=== PATIENT | female | born 1980 | race Caucasian/White ===

== ENCOUNTER 2017-02-10 17:50 | Emergency (ER) | payer OTHER ==
[2017-02-10 17:59] VITALS: BP 123/63; PULSE 75; TEMP 98.3; BMI 24.0
[2017-02-10] MEDS ORDERED: FOLIC ACID INJECTION - 1 MG, THIAMINE HCL 100 MG, MULTIVIT INJECTION ADULT 10 ML in SOD... IVPB ONE (19:27)
--- NOTE | 2017-02-10 19:27 | PDOC ---
History of Present Illness - General Chief Complaint: Pain, Acute Stated Complaint: VOMITING/DIARRHEA Time Seen by Provider: 02/10/17 19:11 - History of Present Illness Initial Comments: 02/10/17 19:27 CHIEF COMPLAINT: vomiting/diarrhea HISTORY OF PRESENT ILLNESS: 36 yo 17 wk F with hx of optic neuritis presents to ED with vomiting/diarrhea x 4 days. Patient states 3 nights ago she had one episode of "projectile vomiting." The next two days she did not have any vomiting but then after eating last night she had another episode of vomiting today. She has had "continuous watery diarrhea" over the past four days, and reports feeling very lethargic. She denies any vaginal bleeding, cramping, but does report right upper quadrant abdominal pain. She states she ate salad for lunch on Thursday and pizza for dinner prior to the onset of vomiting/diarrhea. She is tolerating liquids but "then it comes right out in diarrhea." She denies any recent travel or sick contacts. PAST MEDICAL HISTORY: as per HPI FAMILY HISTORY: Denies SOCIAL HISTORY:Denies tobacco, alcohol, illicit drug use. SURGICAL HISTORY: Denies ALLERGIES: No known drug allergies REVIEW OF SYSTEMS General/Constitutional: Denies fever or chills. Denies weakness, weight change. HEENT: Denies change in vision. Denies ear pain or discharge. Denies sore throat. Cardiovascular: Denies chest pain or shortness of breath. Respiratory: Denies cough, wheezing, or hemoptysis. Gastrointestinal: Vomiting and diarrhea x 4days. RUQ discomfort "feels like I have gas pain." Denies rectal bleeding. Genitourinary: Denies dysuria, frequency, or change in urination. Musculoskeletal: Denies joint or muscle swelling or pain. Denies neck or back pain. Skin and breasts: Denies rash or easy bruising. PHYSICAL EXAM General Appearance: Well-appearing, appropriately dressed. No apparent distress. HEENT: EOMI, PERRLA, normal ENT inspection, normal voice, TMs normal, pharynx normal. No conjunctival pallor. No photophobia, scleral icterus. Neck: Supple. Trachea midline. No tenderness, rigidity, carotid bruit, stridor , lymphadenopathy, or thyromegaly. Respiratory/Chest: Lungs CTAB. Cardiovascular: RRR. S1, S2. Gastrointestinal/Abdominal: Normal bowel sounds. Abdomen soft, non-distended. No tenderness or rebound tenderness. No organomegaly, pulsatile mass, guarding , hernia, hepatomegaly, splenomegaly. Lymphatic: No adenopathy, tenderness. Musculoskeletal/Extremities: Normal inspection. FROM of all extremities, normal capillary refill. Pelvis Stable. No CVA tenderness. No tenderness to extremities, pedal edema, swelling, erythema or deformity. Integumentary: Appropriate color, dry, warm. No cyanosis, erythema, jaundice or rash Neurologic: mental health therapist II-XII intact. Fully oriented, alert. Appropriate mood/affect. Motor strength 5/5. No appreciable EOM palsy, facial droop or sensory deficit. 02/10/17 19:31 Past History - Past Medical History Allergies/Adverse Reactions: Allergies Allergy/AdvReac Type Severity Reaction Status Date / Time No Known Allergies Allergy Verified 02/10/17 17:55 Home Medications: Ambulatory Orders Doxylamine/Pyridoxine HCl [Laura Hutchison 10-10 mg Tablet] 1 each PO HS #30 tablet. 02/10/17 Simethicone [Gas-X] 125 mg PO TID PRN #21 capsule 02/10/17 Asthma: No Cancer: No Cardiac Disorders: No Diabetes: No HTN: No Seizures: No Thyroid Disease: No Other medical history: OPTIC NEURITIS - Psycho/Social/Smoking Cessation Hx Suicidal Ideation: No Smoking History: Current every day smoker Number of Cigarettes Smoked Daily: 20 Information on smoking cessation initiated: No Hx Alcohol Use: No Drug/Substance Use Hx: No Hx Substance Use Treatment: No *Physical Exam - Vital Signs Last Vital Signs Temp Pulse Resp BP Pulse Ox 98.3 F 75 18 123/63 99 02/10/17 17:51 02/10/17 17:51 02/10/17 17:51 02/10/17 17:51 02/10/17 17:51 ED Treatment Course - LABORATORY CBC & Chemistry Diagram: 02/10/17 19:13 02/10/17 19:13 Medical Decision Making - Medical Decision Making 02/10/17 21:37 36 yo 17 wk F with hx of optic neuritis presents to ED with vomiting/diarrhea x 4 days. -CBC, CMP -IVF -Banana bag -TV U/S Labs: K+ 3.0, Calcium 7.9, otherwise unremarkable -Vit D3, Calcium Carbonate -NS + 20K Ultrasound results: FHR 156, live intrauterine gestation measured at 16 weeks and 1 day with sufficient amniotic fluid. Patient reassessed; states she still feels "like I have gas." -Simethicone 80 mg po -Deisylegis RX sent to pharm Advised patient to take medication as prescribed and follow up with OB within 48 hours for further management of . Advised patient of signs and symptoms for return to ER; patient verbalized understanding and agrees to plan. 02/10/17 23:35 *DC/Admit/Observation/Transfer Diagnosis at time of Disposition: Acute gastroenteritis - Discharge Dispostion Disposition: HOME Condition at time of disposition: Stable Admit: No - Prescriptions Prescriptions: Doxylamine/Pyridoxine HCl [Laura Hutchison 10-10 mg Tablet] 1 each PO HS #30 tablet. Simethicone [Gas-X] 125 mg PO TID PRN #21 capsule PRN Reason: Gas - Referrals Referrals: Tanner Mancilla [Primary Care Provider] - - Patient Instructions Printed Discharge Instructions: DI for Viral Gastroenteritis -- Adult Additional Instructions: Please drink plenty of fluids to prevent dehydration and follow up with your administrative program specialist within the next 48 hours for further management of your . Take medication as prescribed. If you experience any fever, vaginal bleeding , abdominal cramping, headache, or any new or worsening symptoms, please return to the ER. - Post Discharge Activity Work/School Note: Back to Work
[2017-02-10] MEDS ORDERED: CHOLECALCIFEROL (VITAMIN D3) 400 UNIT TABLET (FP) PO ONE (21:28)
[2017-02-10] MEDS ORDERED: SODIUM CHLORIDE 0.9%/KCL 1,000 ML IV SCH (21:30)
[2017-02-10] MEDS ORDERED: SODIUM CHLORIDE 1,000 ML with POTASSIUM CHLORIDE 20 MEQ IVPB SCH (21:45)
[2017-02-10] MEDS ORDERED: SIMETHICONE 40 MG/0.6 ML BOTTLE PO ONE (23:33)
[2017-02-10] MEDS ORDERED: MAG HYDROX/AL HYDROX/SIMETH 30 ML UNIT-DOSE CUP ONE (23:54)
[2017-02-11] MEDS ORDERED: CALCIUM CARBONATE 650 MG TABLET PO ONE (21:28)
== END 2017-02-11 00:09 | disposition home or self-care (01) ==
LOC: JER 17:50
PROC: 3E033GC Introduction of Other Therapeutic Substance into Peripheral Vein, Percutaneous Approach (ICD-10-PCS; principal; 2017-02-10)
DX: O26.892 Other specified pregnancy related conditions, second trimester (principal); H46.9 Unspecified optic neuritis; F17.210 Nicotine dependence, cigarettes, uncomplicated; Z3A.17 17 weeks gestation of pregnancy
CPT/HCPCS: 36415; 76815-TC; 80053; 81003; 81015; 83690; 84702; 85025; 96365; 99283-25

== ENCOUNTER 2017-03-09 13:21 | Inpatient (IN) | payer OTHER ==
--- NOTE | 2017-03-09 14:14 | PDOC ---
History of Present Illness - General Chief Complaint: Pain Stated Complaint: ABD PAIN, BLEEDING (19 WKS ) Exam Limitations: No Limitations - History of Present Illness Initial Comments: 03/09/17 14:08 36 yo F at 19 weeks, 3 prior csections with known lucency, over prior scar , here today wtih sudden loss of fluid. now having intermittent labor like cramps q 3 minuts. no bleeding. no abd pain between cramps. no trauma. no n/v 03/09/17 14:14 Timing/Duration: reports: getting worse Quality: reports: moderate Abdominal Pain Onset Location: reports: periumbilical Pain Radiation: reports: no radiation Activities at Onset: reports: none Treatment Prior to Arrive: worse with: analgesics, antacids, heat Aggravating Factors: improves with: None Past History - Past Medical History Allergies/Adverse Reactions: Allergies Allergy/AdvReac Type Severity Reaction Status Date / Time No Known Allergies Allergy Verified 03/09/17 13:27 Home Medications: Ambulatory Orders NK [No Known Home Medication] 03/09/17 Asthma: No Cancer: No Cardiac Disorders: No Diabetes: No HTN: No Seizures: No Thyroid Disease: No - Reproductive History Is Patient Now?: Yes (#): 3 Para: 2 - Psycho/Social/Smoking Cessation Hx Suicidal Ideation: No Smoking History: Never smoked Number of Cigarettes Smoked Daily: 20 Information on smoking cessation initiated: No Hx Alcohol Use: No Drug/Substance Use Hx: No Substance Use Type: None Hx Substance Use Treatment: No Abd/GI Specific PMHX - Complaint Specific PMHX Comments:: 03/09/17 14:14 c section Review of Systems - Review of Systems HEENTM: No: See HPI, Eye Pain, Blurred Vision Respiratory: No: Cough, Orthopnea ABD/GI: Yes: Abdominal Distended, Other (cramps). No: Abd. Pain w/ defecation, Blood Streaked Bowels : Yes: Other (loss of fluid) Musculoskeletal: No: Back Pain Integumentary: No: See HPI All Other Systems: Reviewed and Negative *Physical Exam - Vital Signs Last Vital Signs Temp Pulse Resp BP Pulse Ox 97.9 F 80 19 149/69 100 03/09/17 13:25 03/09/17 13:25 03/09/17 13:25 03/09/17 13:25 03/09/17 13:25 - Physical Exam General Appearance: Yes: Nourished. No: Apparent Distress HEENT: positive: EOMI, PAUL Neck: negative: Tender, Trachea midline Respiratory/Chest: positive: Chest Tender, Lungs Clear Cardiovascular: positive: Regular Rhythm, Regular Rate Vascular Pulses: Dorsalis-Pedis (R): 2+, Doralis-Pedis (L): 2+ Female Pelvic Exam: positive: other (pelvic exam deferred due to concerns for ruptured membranes will send upstairs for evaluation.) Gastrointestinal/Abdominal: positive: Other (gravid) Musculoskeletal: positive: Normal Inspection Extremity: positive: Normal Capillary Refill, Normal Inspection Integumentary: positive: Normal Color, Dry, Warm Neurologic: positive: Alert, Normal Mood/Affect, Normal Response. 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 diferential: PROM, labor, plan iv hydration bedside transabdominal US for well being. ua pain control as needed. will d/w dr. ross. 03/09/17 14:24 d/w dr. Soriano covering for Dr. Ross, will transfer pt to L&D 03/09/17 14:54 d/w labor and delivery, and Dr. Soriano, pt to go to labor and delivery for labor. *DC/Admit/Observation/Transfer Diagnosis at time of Disposition: labor in second trimester - Discharge Dispostion Disposition: HOME Admit: No - Referrals Referrals: STAFF,NOT ON [Primary Care Provider] - - Patient Instructions Printed Discharge Instructions: Labor
[2017-03-09] MEDS ORDERED: SODIUM CHLORIDE 1,000 ML IV STA (14:17)
[2017-03-09 14:43] LABS: URINE APPEARANCE CLOUDY; URINE BILIRUBIN NEGATIVE (NEGATIVE); URINE COLOR YELLOW; URINE GLUCOSE (UA) NEGATIVE (NEGATIVE); URINE KETONE TRACE (NEGATIVE); URINE NITRITE NEGATIVE (NEGATIVE); URINE UROBILINOGEN NEGATIVE E.U./dl (0.2-1.0)
[2017-03-09 14:47] LABS: BASOPHIL 0.2 % (0-2.0); EOSINOPHIL 0.2 % (0-4.5); MCH 29.5 pg (25.7-33.7); MEAN CELL VOLUME 89.4 fl (80-96); MEAN PLT VOLUME 9.9 fl (7.5-11.1); NEUTROPHILS 82.1 % (42.8-82.8); PLATELET COUNT 153 K/MM3 (134-434); RDW 15.5 % (11.6-15.6); WHITE BLOOD COUNT 13.9 K/mm3 (4.0-10.0)
[2017-03-09 14:50] LABS: URINE BLOOD 2+ (NEGATIVE); URINE LEUK ESTERASE 3+ (NEGATIVE); URINE PROTEIN 1+ (NEGATIVE)
[2017-03-09] MEDS: D5W-LR W/ 20 UNITS OXYTOCIN 1,000 ML IV SCH ×2 (15:10→19:40)
[2017-03-09 15:26] LABS: ALBUMIN 3.1 g/dl (3.4-5.0); ALK PHOS 52 U/L (45-117); ANION GAP 10 (8-16); BILIRUBIN,TOTAL 0.2 mg/dL (0.2-1.0); CALCIUM 8.4 mg/dL (8.5-10.1); CO2 23 mmol/L (21-32); COCKROFT - GAULT 257.3205; CREATININE 0.3 mg/dL (0.55-1.02); GLUCOSE,RANDOM 74 mg/dL (74-106); SGOT/AST 15 U/L (15-37); SGPT/ALT 16 U/L (12-78); TOT PROT 6.5 g/dl (6.4-8.2)
[2017-03-09 15:39] LABS: URINE BACTERIA RARE /hpf (NONE SEEN); URINE RBC 9 /hpf (0-3); URINE WBC 983 /hpf (3-5)
[2017-03-09 16:07] VITALS: BMI 21.9
--- NOTE | 2017-03-09 16:13 | HP ---
Past Medical History - Primary Care Physician PCP:: Keyshawn Isbell - Admission Chief Complaint: 36 yo @ 19 weeks with sever pelvic pain, possible leackage of fluid, she had been evaluated in ER and found not to have fluid or air in her abdomen, and was sent to L&D, ? FM History of Present Illness: 1. c/section x 3, last c/s had uterine window 2. ETOP x 11 3. h/o substance use - tobacco and marijuana, denies currently History Source: Patient Limitations to Obtaining History: No Limitations - Past Medical History ...: 15 ...Para: 3 ...Term: 3 ...: 0 ...Spon : 0 ...Induced : 11 ...LMP: 10/26/16 ... Weeks Gestation by Dates: 19.1 ...EDC by Dates: 08/02/17 Additional Medical History: 1. R optic neuritis. 2. h/o anal fissure - Past Surgical History Past Surgical History: Yes: (three) Hx Myomectomy: No Hx Transabdominal Cerclage: No - Smoking History Smoking history: Former smoker Have you smoked in the past 12 months: No Aproximately how many cigarettes per day: 20 - Alcohol/Substance Use Hx Alcohol Use: No Home Medications - Allergies Allergies/Adverse Reactions: Allergies Allergy/AdvReac Type Severity Reaction Status Date / Time No Known Allergies Allergy Verified 03/09/17 13:27 - Home Medications Home Medications: Ambulatory Orders NK [No Known Home Medication] 03/09/17 Physical Exam - Maternity Vital Signs: Vital Signs Temperature 98.3 F 03/09/17 15:15 Pulse Rate 101 H 03/09/17 15:15 Respiratory Rate 20 03/09/17 15:15 Blood Pressure 110/70 03/09/17 15:15 O2 Sat by Pulse Oximetry (%) 100 03/09/17 13:25 Constitutional: Yes: Well Nourished Cardiovascular: Yes: WNL Breast(s): Yes: WNL - Abdominal Exam/OB Fundal Height: 20 Number of Fetuses: Single Presentation: Vertex Contractions: Yes Intensity: Moderate - Vaginal Exam/OB Vaginal Bleediing: Yes Amniotic Membrane Status: Ruptured Nitrazine Test: Positive Amniotic Fluid: Yes: Blood Stained - Physical Exam Musculoskeletal: Yes: WNL Extremities: Yes: WNL Integumentary: Yes: WNL Psychiatric: Yes: WNL (Spontaneously delivered nonviable infant and placenta, ~ 500cc of blood clots, Uterus examined and found to be intact and contracted after delivery) Assessment/Plan 36 yo P3 s/p delivery of Inevitable Ab, intact fetus and placenta vaginal bleeding controlled Pitocin with IVF Patient Blood type is Rh positive, no need for Rhogam No evidence of infection will observe overnight and activities counselor on Contraception in am
[2017-03-09] MEDS ORDERED: ACETAMINOPHEN 325 MG TABLET (FP) PO PRN (16:14)
[2017-03-09] MEDS ORDERED: BENZOCAINE 20% 57 GM BOTTLE TP PRN (16:14)
[2017-03-09] MEDS ORDERED: METHYLERGONOVINE MALEATE 0.2 MG/1 ML AMP IM PRN (16:14)
[2017-03-09] MEDS ORDERED: BISACODYL 10 MG SUPP.RECT RC PRN (16:14)
[2017-03-09] MEDS ORDERED: BENZOCAINE 28 GM HEMORRHOIDAL OINTMENT TP PRN (16:14)
[2017-03-09] MEDS ORDERED: WITCH HAZEL 50% (TUCKS) 40 PAD/JAR PAD TP PRN (16:14)
[2017-03-09] MEDS ORDERED: IBUPROFEN 600 MG TABLET (FP) PO PRN (16:14)
[2017-03-10] MEDS: D5W-LR W/ 20 UNITS OXYTOCIN 1,000 ML IV SCH (02:57)
[2017-03-10 07:24] LABS: BASOPHIL 0.1 % (0-2.0); EOSINOPHIL 0.8 % (0-4.5); MCH 29.3 pg (25.7-33.7); MCHC 32.8 g/dl (32.0-36.0); MEAN CELL VOLUME 89.5 fl (80-96); MEAN PLT VOLUME 9.7 fl (7.5-11.1); NEUTROPHILS 66.2 % (42.8-82.8); PLATELET COUNT 117 K/MM3 (134-434); RDW 15.2 % (11.6-15.6); WHITE BLOOD COUNT 8.5 K/mm3 (4.0-10.0)
--- NOTE | 2017-03-10 14:17 | PN ---
Post Progress Note - Subjective Subjective: 36 yo P3-0-11-3 s/p Inevitable Ab no complains, voiding, tolerating PO ambulating Post Day: 1 Type of Delivery: Vital Signs: Vital Signs Temperature 98.1 F 03/10/17 08:51 Pulse Rate 73 03/10/17 08:51 Respiratory Rate 18 03/10/17 08:51 Blood Pressure 105/55 03/10/17 08:51 O2 Sat by Pulse Oximetry (%) 100 03/10/17 09:00 Breast Exam: Yes: Soft Uterus: Yes: Fundus Firm Abdomen/GI: Yes: Abdomen soft, Tolerating PO Lochia: Yes: Rubra Lochia, amount: Small Extremities: Yes: Calves non-tender Perineum: Yes: Intact Activity: Ambulating - Labs Labs: CBC WBC 8.5 K/mm3 (4.0-10.0) D 03/10/17 06:25 RBC 2.78 M/mm3 (3.60-5.2) L D 03/10/17 06:25 Hgb 8.2 GM/dL (10.7-15.3) L D 03/10/17 06:25 Hct 24.9 % (32.4-45.2) L D 03/10/17 06:25 MCV 89.5 fl (80-96) 03/10/17 06:25 MCHC 32.8 g/dl (32.0-36.0) 03/10/17 06:25 RDW 15.2 % (11.6-15.6) 03/10/17 06:25 Plt Count 117 K/MM3 (134-434) L D 03/10/17 06:25 MPV 9.7 fl (7.5-11.1) 03/10/17 06:25 Neutrophils % 66.2 % (42.8-82.8) 03/10/17 06:25 Lymphocytes % 23.3 % (8-40) D 03/10/17 06:25 Monocytes % 9.6 % (3.8-10.2) 03/10/17 06:25 Eosinophils % 0.8 % (0-4.5) D 03/10/17 06:25 Basophils % 0.1 % (0-2.0) 03/10/17 06:25 Assessment/Plan 36 yo P3 s/p delivery of Inevitable Ab, intact fetus and placenta vaginal bleeding controlled Patient Blood type is Rh positive, no need for Rhogam No evidence of infection Low Platelets Likely result of placental abruption r/o Coagulopathy, repeat CBC, PT/PTT, Fibrinogen will D/C home if wnl NPV x 4 wks RTO in 2 wks Will discuss contraception with Dr. Isbell
[2017-03-10 15:26] VITALS: BP 119/69; PULSE 67; TEMP 98
[2017-03-10 16:29] LABS: BASOPHIL 0.3 % (0-2.0); MCH 29.4 pg (25.7-33.7); MCHC 32.8 g/dl (32.0-36.0); MEAN CELL VOLUME 89.6 fl (80-96); MEAN PLT VOLUME 9.4 fl (7.5-11.1); PLATELET COUNT 151 K/MM3 (134-434); RDW 15.5 % (11.6-15.6); WHITE BLOOD COUNT 7.3 K/mm3 (4.0-10.0)
[2017-03-10 16:42] LABS: INR 1.06 (0.82-1.09); PROTHROMBIN TIME (PATIENT) 11.7 SEC (9.98-11.88)
[2017-03-10] MEDS ORDERED: SENNOSIDES/DOCUSATE COMBO (SENNA PLUS) TABLET (UD) PO PRN (22:00)
--- NOTE | 2017-03-18 11:18 | PATH ---
Surgical Pathology Report Patient Name: CHANDA WESLEY Med. Rec. #: [id number] /Age/Gender: 1980 (Age: 36) / F Account: [id number] Location: [address] [place] [address]/[facility] Taken: 03/09/2017 Received: 03/10/2017 Reported: 03/12/2017 Physicians: Kera Cooney M.D. Specimen(s) Received PLACENTA Clinical History , c/section x3, IA x10 -inevitable Final Diagnosis PLACENTA, DELIVERY: FOCALLY DISRUPTED, IMMATURE, SECOND TRIMESTER PLACENTA WITH FOCAL PARENCHYMAL HEMORRHAGE, MILD PREVILLOUS, PERIVILLOUS, AND PRECHORIONIC FIBRIN DEPOSITION, THREE VESSEL UMBILICAL CORD, AND PLACENTAL MEMBRANES WITH ACUTE NECROTIZING CHORIOAMNIONITIS AND ACUTE INFLAMMATION OF CHORIONIC PLATE WITH CHORIONIC VASCULITIS. Electronically Signed Jefferson Agee M.D. Gross Description The specimen is received fresh, labeled "placenta" and is a 119 gram, 10.5 x 10.5 x 1.6 cm placenta with attached membranes and umbilical cord. The attached membranes are atkinson-trujillo, translucent with focal opacities and insert marginally. The umbilical cord measures 19 cm in length and averages 0.7 cm in diameter. The cord inserts eccentrically, 2.5 cm to the nearest margin. No true knots or strictures are identified. Cut surface of the umbilical cord reveals 3 vessels. The surface is atkinson-trujillo with minimal fibrin deposition and small caliber vessels. The maternal surface is red-brown with focal defects. Sectioning reveals a 1.2 cm in greatest dimension hemorrhagic possible lesion. The remaining placental parenchyma is red-brown and spongy. Inside Steward/Stewardess sections are submitted in 5 cassettes as follows: 1-membrane rolls and umbilical cord; 2-possible lesion; 3-5-full thickness sections of placenta. 03/11/2017 [facility]03/11/2017
--- NOTE | 2017-03-24 07:43 | DS ---
Physical Exam-HRIS DEVELOPER Vital Signs: Vital Signs Temperature 98.0 F 03/10/17 15:25 Pulse Rate 67 03/10/17 15:25 Respiratory Rate 18 03/10/17 08:51 Blood Pressure 119/69 03/10/17 15:25 O2 Sat by Pulse Oximetry (%) 100 03/10/17 09:00 Constitutional: Yes: Well Nourished Eyes: Yes: WNL Neck: Yes: WNL Cardiovascular: Yes: WNL Respiratory: Yes: WNL Gastrointestinal: Yes: WNL Renal/: Yes: WNL Pelvis: Yes: WNL External Genitalia: Yes: Normal Internal Exam Deferred: Yes Vaginal Exam: Yes: Normal Uterus: Yes: Normal ....Post : Yes: Uterus firm, Uterus non-tender Breast(s): Yes: WNL Musculoskeletal: Yes: WNL Extremities: Yes: WNL Edema: No Integumentary: Yes: WNL Neurological: Yes: WNL ...Motor Strength: WNL Psychiatric: Yes: WNL, Alert, Oriented Labs: CBC, BMP 03/10/17 16:15 Delivery - Delivery Vaginal Delivery: No Problems (Non viable, , spontaneous ) Type of Anesthesia: None Episiotomy/Laceration: None EBL (cc): 500 Delivery, Single - Stages of Labor Date 1st Stage Initiatied: 03/09/17 Time 1st Stage Initiated: 07:30 Date of Delivery: 03/09/17 Time of Delivery: 15:52 Time Placenta Delivered: 16:06 - Condition of Infant Glaze Wiper/Cruise Consultant Present: No Infant Gender: Male Weight: 10.406 oz - 1 Minute Total Score: 0 5 Minutes Total Score: 0 - [place] Feeding Plan Initial Plan: Elected not to breastfeed exclusively throughout hospitalization Benefits of Exclusively reinforced: No Remarks - Remarks Remarks: Likely abruption causing Inevitable Discharge Summary Reason For Visit: INEVITABLE Condition: Good - Instructions Diet, Activity, Other Instructions: Physical activity Resume your normal everyday activity as tolerated no heavy lifting or exercise until seen by your surgeon. You may walk unlimited summer of and climb stairs. You may resume driving the car when you feel safe and comfortable behind the wheel. No sexual activity as instructed. Wound care If you have a bandage, leave it on, and keep dry for 48-72 hours. After that time discard the outer bandage. If they are tapes on the skin under the out of bandage leave them in place. They will peel off in the next 7 to 10 days. Do Not Peel them off. You may shower the day after surgery. If there are tapes present on the skin, you may shower over them. Diet There are no dietary restrictions. Eat healthy, high-fiber foods. Drink 6 to 8 glasses of liquid each day. This will assist in keeping your bowels are regular. Pain management You may take Tylenol or acetaminophen or Ibuprofen (for example, Motrin, Advil etc.) from my pain prescription medication is ordered should be taken as prescribed for moderate to severe pain. Call MD for any of the following: Severe pain not relieved by medication Fever of 101 or higher Excessive bleeding or drainage on dressing Inability to urinate Referrals: Keyshawn Isbell MD [Staff Physician] - STAFF,NOT ON [Primary Care Provider] - Disposition: HOME - Home Medications Comprehensive Discharge Medication List: Ambulatory Orders Ibuprofen [Motrin -] 600 mg PO TID #21 tablet 03/10/17
== END 2017-03-10 18:15 | disposition home or self-care (01) | DRG 564 ==
LOC: JER 13:21 → JLDR 15:15 → J6S 21:51
PROVIDERS: ADMIT Obstetrics & Gynecology; ATTEND Obstetrics & Gynecology
DX: O03.9 Complete or unspecified spontaneous abortion without complication (principal); F12.10 Cannabis abuse, uncomplicated; Z72.0 Tobacco use
CPT/HCPCS: 36415; 59409; 80053; 81003; 81015; 85025; 85362; 85610; 85730; 88307-TC; 99284-25

== ENCOUNTER 2018-06-11 11:25 | Inpatient (IN) | payer OTHER ==
[2018-06-11 12:10] VITALS: BMI 30.9
[2018-06-11] MEDS ORDERED: CITRIC ACID/SODIUM CITRATE 30 ML UNIT-DOSE CUP PO ONE (14:14)
[2018-06-11] MEDS ORDERED: ELECTROLYTE-148 SOLN 1,000 ML IV SCH ×2 (14:15)
[2018-06-11] MEDS ORDERED: TUBERCULIN PPD 5 TU/0.1ML SYRINGE (IN PATIENT USE ONLY) ID ONE (14:18)
[2018-06-11] MEDS ORDERED: ceFAZolin SODIUM 1 GM VIAL ONE (14:22)
[2018-06-11] MEDS ORDERED: morphine SULFATE/Preservative Free 0.5 MG/ML (1cc Syringe) ONE (14:22)
[2018-06-11] MEDS ORDERED: PHENYLEPHRINE HCL 10 MG/1 ML SINGLE DOSE VIAL ONE (14:22)
--- NOTE | 2018-06-11 14:23 | HP ---
Past Medical History - Primary Care Physician PCP:: Keyshawn Isbell - Admission Chief Complaint: 38yo P3 with at EGA 37w6d and prior C/S x 3, and lower uterine segment compromise/defect noted at prior C/S History of Present Illness: Prior C/S x 3 Compromised lower uterine segment with "window" at last C/S Excessive weight gain in SAB at 19wks x 1 Multiple abortions History Source: Patient Limitations to Obtaining History: No Limitations - Past Medical History A CLASS LINEMAN: No: Alzheimer's, CVA, Dementia, Migraine, Multiple Sclerosis, Peripheral Neuropathy, Parkinson's, Seizure, Syncope, TIA, Vertigo, Other Cardiovascular: No: AFIB, Aneurysm, Aortic Insufficiency, Aortic Stenosis, CAD, CHF, Deep Vein Thrombosis, HTN, Hyperlipdemia, CT, Mitral Insufficiency, Mitral Stenosis, Murmur, Pulmonary Hypertension, Other Pulmonary: No: Asthma, Bronchitis, Cancer, COPD, O2 Dependent, Pneumonia, Previously Intubated, Pulmonary Embolus, Pulmonary Fibrosis, Sleep Apnea, Other Gastrointestinal: No: Ascites, Cancer, Constipation, Crohn's Disease, Diverticulitis, Diverticulosis, Esophageal Varices, Gastritis, GERD, GI Bleed, Hemorrhoids, Hiatal Hernia, Inflamatory Bowel Disease, Irritable Bowel Disease, Pancreatitis, Peptic Ulcer Disease, Ulcerative Colitis, Other Hepatobiliary: No: Cirrhosis, Cholelithiasis, Cholecystitis, Choledocholithiasis , Hepatitis A, Hepatitis B, Hepatitis C, Other Renal/: No: Renal Failure, Renal Inusuff, BPH, Cancer, Hematuria, Hemodialysis , Neurogenic Bladder, Renal Calculi, UTI, Other Reproductive: No: Ectopic , Endometriosis, Fibroids, PID, Polycystic Ovary Syndrome, Postmenopausal, Other ...: 15 ...Para: 3 ...Term: 3 ...Spon : 1 (19wk) ...LMP: 09/14/17 ... Weeks Gestation by Dates: 38 ...EDC by Dates: 06/26/18 ...EDC by Sono: 06/21/18 Heme/Onc: No: Anemia, B12 Deficiency, Bleeding Disorder, Cancer, Current Chemotherapy, Current Radiation Therapy, Hemochromatosis, Hypercoaguable State, Myeloproliferative Synd, Sickle Cell Disease, Sickle Cell Trait, Thrombocytopenia, Other Infectious Disease: No: AIDS, C-Diff, Herpes Zoster, HIV, MRSA, STD's, Tuberculosis, VREF, Other Psych: No: Addictions, Anxiety, Bipolar, Depression, Panic, Psychosis, Schizophrenia, Other Musculoskeletal: No: Bursitis, Chronic low back pain, Hemiparesis, Hemiplegia, Osteoarthritis, Paraplegia, Other Rheumatology: No: Fibromyalgia, Gout, Lupus, Rheumatoid Arthritis, Sarcoidosis, Vasculitis, Other ENT: No: Allergic Rhinitis, Sinusitis, Other Endocrine: No: Bj's Disease, [place]'s Disease, Diabetes Insipidus, Diabetes Mellitus, Hyperparathyroidism, Hyperthyroidism, Hypothyroidism, Osteopenia, SIADH, Other Dermatology: No: Basal Cell, Cellulitis, Eczema, Melanoma, Psoriasis, Squamous Cell, Other Additional Medical History: 1. R optic neuritis. 2. h/o anal fissure - Past Surgical History Past Surgical History: Yes: (three) Hx Myomectomy: No Hx Transabdominal Cerclage: No Additional Surgical History: SAB at 19 wk, multiple abortions - Smoking History Smoking history: Never smoked Have you smoked in the past 12 months: No Aproximately how many cigarettes per day: 20 - Alcohol/Substance Use Hx Alcohol Use: No History of Substance Use: reports: None - Social History Usual Living Arrangement: Yes: With Child ADL: Independent History of Recent Travel: No Home Medications - Allergies Allergies/Adverse Reactions: Allergies Allergy/AdvReac Type Severity Reaction Status Date / Time No Known Allergies Allergy Verified 06/11/18 12:17 - Home Medications Home Medications: Ambulatory Orders Vit No.130/Iron/Folic [ Vitamins] 1 each PO DAILY 03/18/18 Family Disease History - Family Disease History Family History: Unremarkable Review of Systems - Review of Systems Constitutional: reports: No Symptoms Eyes: reports: No Symptoms HENT: reports: No Symptoms Neck: reports: No Symptoms Cardiovascular: reports: No Symptoms Respiratory: reports: No Symptoms Gastrointestinal: reports: No Symptoms Genitourinary: reports: No Symptoms Breasts: reports: No Symptoms Reported Musculoskeletal: reports: No Symptoms Integumentary: reports: No Symptoms Neurological: reports: No Symptoms Endocrine: reports: No Symptoms Hematology/Lymphatic: reports: No Symptoms Psychiatric: reports: No Symptoms Pain Intensity: 0 Physical Exam - Maternity Vital Signs: Vital Signs Temperature 98.3 F 06/11/18 11:53 Pulse Rate 74 06/11/18 11:53 Respiratory Rate 18 06/11/18 11:53 Blood Pressure 118/65 06/11/18 11:53 O2 Sat by Pulse Oximetry (%) Constitutional: Yes: Well Nourished, No Distress, Calm Eyes: Yes: WNL, Conjunctiva Clear HENT: Yes: WNL, Atraumatic, Normocephalic Neck: Yes: WNL, Supple, Trachea Midline Cardiovascular: Yes: WNL, Regular Rate and Rhythm Lungs: Clear to auscultation, Normal air movement Breast(s): Yes: WNL - Abdominal Exam/OB Fundal Height: 38 Number of Fetuses: Single Presentation: Vertex Contractions: No Heart Rate (range): 130 Heart Rate Location: Midline Category: I Accelerations: None Decelerations: None - Vaginal Exam/OB Vaginal Bleediing: No Speculum Exam: No Dilatation (cm): 0 Effacement (%): 0 Amniotic Membrane Status: Intact Presentation: Vertex/Position Station: -4 - Physical Exam Musculoskeletal: Yes: WNL Extremities: Yes: WNL Edema: No Integumentary: Yes: WNL Deep Tendon Reflex Grade: Normal +2 ...Motor Strength: WNL Psychiatric: Yes: WNL, Alert, Oriented Hemorrhage Risk Assessment - Risk Factors Medium Risk Factors: Yes: Prior , uterine surgery,or multiple laparotomies High Risk Factors: Yes: None Risk Score: 1 Risk Level: Medium Risk Imaging - Results Ultrasound: Report Reviewed Assessment/Plan 38yo P3 with at EGA 37w6d and prior C/S x 3, noted to have a lower uterine segment compromise/defect at prior C/S. Pt was seen and evaluated by perinatologist with recommendation for delivery at 37-38 6/7wks. We discussed the risks and benefits of C/S at length, including but not limited to scarring, pain, bleeding, infection, injury to underlying organs and structures, need for additional surgery to repair/treat any problems or complications, complications/injuries, etc. We specifically discussed possible hysterectomy in case of hemorrhage. The pt verbalized her understanding and requested to proceed with surgery. The pt is aware that all surgeries have risks and no guarantees can be provided.
[2018-06-11] MEDS ORDERED: ONDANSETRON 4 MG/2 ML VIAL IVPUSH PRN (14:39)
[2018-06-11] MEDS ORDERED: OXYTOCIN 10 UNITS/ML VIAL ONE ×2 (14:47)
[2018-06-11] MEDS ORDERED: EPINEPHrine/PF 1 MG/1 ML (1:1,000) AMPULE ONE (14:47)
[2018-06-11] MEDS ORDERED: OXYTOCIN 20 UNITS in 0.9% NS 20 UNIT/1,000 ML INFUS.BAG IV ONE (15:16)
[2018-06-11] MEDS ORDERED: SENNOSIDES/DOCUSATE COMBO (SENNA PLUS) TABLET (UD) PO PRN (15:44)
[2018-06-11] MEDS ORDERED: METHYLERGONOVINE MALEATE 0.2 MG/1 ML AMP IM PRN (15:44)
[2018-06-11] MEDS ORDERED: WITCH HAZEL 50% (TUCKS) 40 PAD/JAR PAD TP PRN (15:44)
[2018-06-11] MEDS ORDERED: BENZOCAINE 28 GM HEMORRHOIDAL OINTMENT TP PRN (15:44)
[2018-06-11] MEDS ORDERED: IBUPROFEN 600 MG TABLET (FP) PO PRN (15:44)
[2018-06-11] MEDS ORDERED: OXYTOCIN 20 UNITS in 0.9% NS 20 UNIT/1,000 ML INFUS.BAG IV SCH (15:45)
--- NOTE | 2018-06-11 16:03 | OP ---
Operative Note - Note: Operative Date: 06/11/18 Pre-Operative Diagnosis: at EGA 37w6d. Prior C/S x 3. Compromised low uterine segment Operation: repeat LT C/S Findings: Very thin "window" in low uterine segment Live baby boy in vtx presentation No meconium normal tubes and ovaries Post-Operative Diagnosis: Same as Pre-op Surgeon: Keyshawn Isbell Level Glass Vial Filler: Rodrigo Rios Anesthesiologist/HEAD SCHOOL CUSTODIAN: Ru Hernadez Anesthesia: Spinal Specimens Removed: Placenta Estimated Blood Loss (mls): 700 Drains & Tubes with Location: Saldivar Cath Drains, Volume Out (mls): 500 Blood Volume Replaced (mls): 0 Fluid Volume Replaced (mls): 2,000 Operative Report Dictated: Yes
[2018-06-11] MEDS: IBUPROFEN 800 MG/8 ML IJ IVPB PRN (20:24)
[2018-06-11] MEDS ORDERED: ACETAMINOPHEN 325 MG TABLET (FP) PO PRN (20:36)
[2018-06-12] MEDS: IBUPROFEN 800 MG/8 ML IJ IVPB PRN (06:18)
[2018-06-12 08:39] LABS: BASO % 0.5 % (0-2.0); EOS % 0.9 % (0-4.5); HEMATOCRIT 35.2 % (32.4-45.2); HEMOGLOBIN 12.1 GM/dL (10.7-15.3); LYMPH % 18.8 % (8-40); MCH 32.1 pg (25.7-33.7); MCHC 34.4 g/dl (32.0-36.0); MEAN CELL VOLUME 93.3 fl (80-96); MONO % 11.3 % (3.8-10.2); NEUT % 68.5 % (42.8-82.8); PLATELET COUNT 113 K/MM3 (134-434); RBC 3.77 M/mm3 (3.60-5.2); RDW 13.8 % (11.6-15.6); WHITE BLOOD COUNT 7.2 K/mm3 (4.0-10.0)
--- NOTE | 2018-06-12 08:58 | PN ---
Progress Note (short form) - Note Progress Note: pod 1 doing well, no c/o , no excess vaginal bleeding CBC, BMP 06/12/18 08:21 Last Vital Signs Temp Pulse Resp BP Pulse Ox 98.6 F 62 20 98/52 06/12/18 06:00 06/12/18 06:00 06/12/18 06:00 06/12/18 06:00 abdomen soft, no distension, no cva incision dry, clean , no calf tenderness plan ambulate, cbc , advance diet
[2018-06-12] MEDS: PRENATAL VITAMINS W/ FOLIC ACID TABLET (FP) PO SCH (09:42)
[2018-06-12] MEDS: ENOXAPARIN NA (PORCINE) 40 MG/0.4 ML DISP.SYRIN SQ SCH (10:00)
--- NOTE | 2018-06-12 10:37 | OP ---
DATE OF OPERATION: 06/11/2018 PREOPERATIVE DIAGNOSES: at estimated gestational age of 37 weeks and 6 days, previous section x3, compromised lower uterine segment noted on a previous section. POSTOPERATIVE DIAGNOSES: at estimated gestational age of 37 weeks and 6 days, previous section x3, compromised lower uterine segment noted on a previous section. PROCEDURE: Repeat low transverse section via Pfannenstiel skin incision. SURGEON: Keyshawn Isbell MD EQUIPMENT PROCESSER STORAGE: Rodrigo Rios MD ANESTHESIOLOGIST: Ru Hernadez MD ANESTHESIA: Spinal. ESTIMATED BLOOD LOSS: 700 mL INTRAVENOUS FLUIDS: 2000 mL URINE OUTPUT: Clear urine 500 mL at the end of the procedure. FINDINGS: Upon entry into the abdominal cavity, a gravid uterus was noted with a very thin lower uterine segment, creating a "window." Amniotic membranes were visible. The bladder was densely adherent to the remaining lower uterine segment going down to the cervix. Normal fallopian tubes and ovaries. Live baby boy in vertex presentation. No meconium in amniotic fluids. DESCRIPTION OF PROCEDURE: The patient was met preoperatively. Risks, benefits, and alternatives of surgery were discussed in details. All questions were answered. The patient was brought to the OR with IV running. She was placed on the surgical table in a sitting position. The spinal anesthesia was achieved without difficulty. The patient was then placed on a surgical table in the supine position with a leftward tilt. The patient was prepped and draped in the usual sterile fashion. A Saldivar catheter was inserted and left to drain to gravity. The surgeons then proceeded with the operation. A Pfannenstiel skin incision was made in the lower abdomen along the prior scar. The incision was carried down to the level of fascia. The fascia was incised in the midline. The incision was extended bilaterally using curved Alvarado scissors. The fascia was dissected away from the rectus muscles superiorly and inferiorly. The rectus muscles were in the midline using sharp dissection. The peritoneum was identified and entered sharply. The peritoneal incision was extended superiorly and inferiorly. The survey of the abdomen revealed a gravid uterus with a very thin "window" in the lower uterine segment. The amniotic membranes were visible. The bladder was densely adherent to the lower portion of the uterus leading to the cervix. The bladder was gently dissected using a sharp technique from the lower uterine segment to allow for an operative delivery and incision of the uterus. The uterus was incised in the lower uterine segment. The incision was extended bilaterally using bandage scissors. The amniotic sac was ruptured, and the baby was delivered from vertex presentation. The placenta was delivered manually without complications. The uterus was cleared of all clots and debris. The uterine incision was then closed using a 0 Biosyn suture with a running locking stitch. The closure was then reinforced by imbricating the closure with a secondary layer of uterocervical fascia. A 0 Biosyn suture was used with good hemostasis. Once the uterus was closed, the operative site was irrigated using copious amounts of normal saline. Good hemostasis was confirmed. The abdominal peritoneum was then closed using a 2-0 chromic suture. The rectus muscles were approximated using several interrupted 2-0 chromic sutures. The fascia was closed using a 0 Vicryl suture with a running stitch. The subcutaneous adipose tissues and Albert fascia were closed using several interrupted 2-0 chromic sutures. The skin was approximated using a 4-0 Vicryl suture with a subcutaneous stitch. Sponge, lap, and needle counts were correct. The patient tolerated the procedure well and was transferred to recovery room in stable condition and awake. Steve [id number]
[2018-06-12] MEDS: ACETAMINOPHEN 325 MG TABLET (FP) PO PRN ×3 (13:07→22:22)
[2018-06-12] MEDS: oxyCODONE HCL 5 MG TABLET PO PRN ×3 (13:08→22:23)
[2018-06-12] MEDS: SIMETHICONE 80 MG TAB.CHEW (FP) PO PRN ×3 (13:10→22:21)
--- NOTE | 2018-06-12 13:51 | PN ---
Progress Note (short form) - Note Progress Note: POD #1 - s/p repeat under spinal anesthesia with duramorph. VSS. Pt. doing well, resting comfortably in bed. No complaints. Good pain control. No apparent anesthetic complications noted. Continue current care.
[2018-06-12] MEDS ORDERED: BISACODYL 10 MG SUPP.RECT RC PRN (15:44)
[2018-06-12] MEDS: IBUPROFEN 600 MG TABLET (FP) PO PRN (22:22)
[2018-06-13] MEDS: oxyCODONE HCL 5 MG TABLET PO PRN ×5 (03:48→22:46)
[2018-06-13] MEDS: SIMETHICONE 80 MG TAB.CHEW (FP) PO PRN ×2 (03:52→22:45)
[2018-06-13] MEDS: IBUPROFEN 600 MG TABLET (FP) PO PRN ×4 (03:52→22:46)
[2018-06-13] MEDS: ENOXAPARIN NA (PORCINE) 40 MG/0.4 ML DISP.SYRIN SQ SCH (10:15)
[2018-06-13] MEDS: PRENATAL VITAMINS W/ FOLIC ACID TABLET (FP) PO SCH (10:17)
[2018-06-13] MEDS: ACETAMINOPHEN 325 MG TABLET (FP) PO PRN ×3 (12:22→22:47)
--- NOTE | 2018-06-13 12:37 | PN ---
Progress Note (short form) - Note Progress Note: pod 2 doing well, ambulating , has mild low sacral pain CBC, BMP 06/12/18 08:21 Last Vital Signs Temp Pulse Resp BP Pulse Ox 98.1 F 60 20 128/74 06/13/18 09:07 06/13/18 09:07 06/13/18 09:07 06/13/18 09:07 abdomen soft , BS present incsion dry, clean no calf tenderness plan cbc in am , plan for dischsrge in am motrin prn
[2018-06-13] MEDS ORDERED: MAGNESIUM HYDROX 2400MG/30ML ORAL SUSPENSION 30 ML CUP PO PRN (21:47)
[2018-06-14] MEDS: SIMETHICONE 80 MG TAB.CHEW (FP) PO PRN ×2 (07:16→12:18)
[2018-06-14] MEDS: IBUPROFEN 600 MG TABLET (FP) PO PRN ×2 (07:17→12:18)
[2018-06-14] MEDS: oxyCODONE HCL 5 MG TABLET PO PRN ×2 (07:18→12:19)
[2018-06-14] MEDS: ACETAMINOPHEN 325 MG TABLET (FP) PO PRN ×2 (07:18→12:19)
[2018-06-14 07:26] LABS: BASO % 0.5 % (0-2.0); EOS % 1.3 % (0-4.5); HEMATOCRIT 33.4 % (32.4-45.2); HEMOGLOBIN 11.6 GM/dL (10.7-15.3); LYMPH % 31.4 % (8-40); MCH 32.1 pg (25.7-33.7); MCHC 34.7 g/dl (32.0-36.0); MEAN CELL VOLUME 92.7 fl (80-96); MEAN PLT VOLUME 9.6 fl (7.5-11.1); MONO % 12.7 % (3.8-10.2); NEUT % 54.1 % (42.8-82.8); PLATELET COUNT 126 K/MM3 (134-434); RDW 13.8 % (11.6-15.6); WHITE BLOOD COUNT 6.4 K/mm3 (4.0-10.0)
--- NOTE | 2018-06-14 07:59 | DS ---
Physical Exam-BOLT THREADER Vital Signs: Vital Signs Temperature 98.1 F 06/13/18 21:37 Pulse Rate 57 L 06/13/18 21:37 Respiratory Rate 18 06/13/18 21:37 Blood Pressure 111/74 06/13/18 21:37 O2 Sat by Pulse Oximetry (%) Constitutional: Yes: Well Nourished, No Distress, Calm Eyes: Yes: WNL, Conjunctiva Clear, EOM Intact HENT: Yes: WNL, Atraumatic, Normocephalic Neck: Yes: WNL, Supple, Trachea Midline Cardiovascular: Yes: WNL, Regular Rate and Rhythm Respiratory: Yes: WNL, Regular, CTA Bilaterally Gastrointestinal: Yes: WNL ...Rectal Exam: Yes: WNL Renal/: Yes: WNL Uterus: Yes: Normal ....Post : Yes: Uterus firm, Uterus non-tender, Slight lochia rubra Breast(s): Yes: WNL Musculoskeletal: Yes: WNL Extremities: Yes: WNL Edema: LLE: Trace, RLE: Trace Integumentary: Yes: WNL Neurological: Yes: WNL, Alert, Oriented ...Motor Strength: WNL Psychiatric: Yes: WNL, Alert, Oriented Labs: CBC, BMP 06/14/18 06:30 Delivery - Delivery Vaginal Delivery: Spontaneous Section: Repeat Type of Anesthesia: Spinal EBL (cc): 700 Delivery, Single - Stages of Labor Date of Delivery: 06/11/18 Time of Delivery: 15:55 Time Placenta Delivered: 15:56 Placenta: Yes: Expressed - Condition of Infant Bone Density Technician/Tank Storage Supervisor Present: Yes Name: Hazel Kerr Gender: Female Weight: 6 lb 14 oz Position: Left, OA Total Hours ROM (Hrs/Mins): 1M - 1 Minute Total Score: 9 5 Minutes Total Score: 9 - Feeding Plan Initial Plan: Elected not to breastfeed exclusively throughout hospitalization Discharge Summary Reason For Visit: Procedures: Principal: repeat LST c/s Hospital Course: no complication Condition: Good - Instructions Diet, Activity, Other Instructions: follow up office 1 week, if pain, fever , heavy vaginal bleeding call MD Referrals: Keyshawn Isbell MD [Staff Physician] - Disposition: HOME - Home Medications Comprehensive Discharge Medication List: Ambulatory Orders Vit No.130/Iron/Folic [ Vitamins] 1 each PO DAILY 03/18/18 Ibuprofen [Motrin -] 600 mg PO QID #28 tablet 06/13/18 Oxycodone HCl/Acetaminophen [Percocet 5-325 mg Tablet] 1 tab PO Q6H PRN #20 tablet MDD 4 06/13/18
[2018-06-14 08:40] VITALS: BP 112/64; PULSE 54; TEMP 97.7
[2018-06-14] MEDS: ENOXAPARIN NA (PORCINE) 40 MG/0.4 ML DISP.SYRIN SQ SCH (10:32)
[2018-06-14] MEDS: PRENATAL VITAMINS W/ FOLIC ACID TABLET (FP) PO SCH (10:35)
--- NOTE | 2018-06-21 18:47 | PATH ---
Surgical Pathology Report Patient Name: CHANDA [facility]ESLEY [facility]. Rec. #: [id number] /Age/Gender: 1980 (Age: 38) / F Account: [id number] Location: [facility] OBS/BRIM SETTER Taken: 06/11/2018 Received: 06/14/2018 Reported: 06/21/2018 Physicians: Keyshawn Isbell M.D. Specimen(s) Received PLACENTA Clinical History The x3 Final Diagnosis PLACENTA: THIRD TRIMESTER PLACENTA. TRIVASCULAR CORD. MEMBRANES WITH NO DIAGNOSTIC ABNORMALITIES. Electronically Signed Jose C Rangel M.D. Gross Description The specimen is received fresh labeled placenta and is a 566 gram, 17.0 x 16.5 x 3.2 cm. placenta with attached membranes and umbilical cord. The attached membranes are atkinson, translucent with focal opacities and insert marginally. The umbilical cord measures 23 cm. in length and averages 1.3 cm. in diameter. The cord inserts eccentrically, 5.5 cm. to the nearest margin. No true knots or strictures are identified. Cut surface of the umbilical cord reveals 3 vessels. The surface is saeed-blue with minimal fibrin deposition and appropriate caliber vessels. The maternal surface is red-brown with focal defects. Sectioning reveals red-brown, spongy parenchyma. No lesions are identified. Ophthalmic Medical Technologist sections are submitted in three cassettes as follows: 1- membrane rolls and umbilical cord; 2-3- full thickness sections of placenta. /06/18/2018 [facility]06/18/2018
== END 2018-06-14 14:00 | disposition home or self-care (01) | DRG 540 ==
LOC: JLDR 11:25 → J3W 17:19
PROVIDERS: ADMIT Obstetrics & Gynecology; ATTEND Obstetrics & Gynecology
PROC: 10D00Z1 Extraction of Products of Conception, Low, Open Approach (ICD-10-PCS; principal; 2018-06-11)
DX: O34.219 Maternal care for unspecified type scar from previous cesarean delivery (principal); O75.89 Other specified complications of labor and delivery; Z3A.37 37 weeks gestation of pregnancy; Z37.0 Single live birth
CPT/HCPCS: 36415; 85025; 88307-TC